=== PATIENT | male | born 1960 | race Hispanic/Latino ===

== ENCOUNTER 2016-10-13 17:05 | Observation (INO) | payer MEDICAID ==
[2016-10-13 17:08] VITALS: BP 120/73; PULSE 90; RESP 18; TEMP 98; O2SAT 100
--- NOTE | 2016-10-13 17:19 | ED PDOC ---
HPI: Psych/Substance Abuse Time Seen by Provider: 10/13/16 17:17 Chief Complaint (Nursing): Alcohol Ingestion Chief Complaint (Provider): etoh History Per: Patient, EMS Additional Complaint(s): 56 year old male presents to ED via ambulance acutely intoxicated. Patient is currently non-domiciled and admits to drinking alcohol daily. He offers no acute medical complaints at this time. Patient has been seen in [facility] ED several times in recent past. Patient is requesting inpatient detox. Patient denies any suicidal or homicidal ideation. Past Medical History Reviewed: Historical Data, Nursing Documentation, Vital Signs Vital Signs: Last Vital Signs Temp 98 F 10/13/16 17:07 Pulse 90 10/13/16 17:07 Resp 18 10/13/16 17:07 BP 120/73 10/13/16 17:07 Pulse Ox 100 10/13/16 17:07 - Medical History PMH: Asthma, COPD - Family History Family History: States: No Known Family Hx - Living Arrangements Living Arrangements: Other (non-domiciled) - Social History Alcohol: > 2 Drinks/Day Drugs: Denies - Home Medications Home Medications: Ambulatory Orders Medication Instructions Recorded Albuterol HFA [Ventolin HFA 90 0.09 mg IH Q4 PRN #1 puff 09/16/16 mcg/actuation (8 g)] predniSONE [predniSONE Tab] 40 mg PO DAILY #6 tab 09/16/16 - Allergies Allergies/Adverse Reactions: Allergies Allergy/AdvReac Type Severity Reaction Status Date / Time No Known Allergies Allergy Verified 09/22/16 20:34 Review of Systems ROS Statement: Except As Marked, All Systems Reviewed And Found Negative Psych: Positive for: Other (etoh) Physical Exam - Reviewed Nursing Documentation Reviewed: Yes Vital Signs Reviewed: Yes - Physical Exam Appears: Positive for: Well, Non-toxic, No Acute Distress Cardiovascular/Chest: Positive for: Regular Rate, Rhythm Respiratory: Positive for: Normal Breath Sounds. Negative for: Wheezing, Respiratory Distress Neurologic/Psych: Positive for: Alert, Oriented, Other (intoxicated, answers questions appropriately) - ECG O2 Sat by Pulse Oximetry: 100 Pulse Ox Interpretation: Normal Medical Decision Making Medical Decision Makin56 year old intoxicated male Plan: Admit to ED observation BAL Glucose POC: 82 ED OBSERVATION Date of observation admission: 10/13/16 Time of observation admission: 17:20 - Observation admission statement Patient is being placed in observation because:: AMS due to etoh intoxication - Goals of Observation Goals of observation are:: monitor patient while intoxicated, pending sobriety - Progress Note Progress Note: 10/13/16 18:30 Patient is sleeping, arousable, vital signs are stable, no resp compromise 10/13/16 20:00 Patient walked to bathroom with steady gait, he is awake and alert, asking for something to ear 10/13/16 20:25 Patient eloped from ED Disposition - Clinical Impression Clinical Impression: Alcohol abuse with intoxication - Patient ED Disposition Is Patient to be Admitted: No - Disposition Disposition: Eloped Disposition Time: 20:27 Condition: UNKNOWN
== END 2016-10-13 20:40 | disposition left against medical advice (07) ==
LOC: H.ER 17:05 → H.EROBSV 17:19
PROVIDERS: ADMIT Emergency Medicine; ATTEND Emergency Medicine
DX: F10.129 Alcohol abuse with intoxication, unspecified (principal); J44.9 Chronic obstructive pulmonary disease, unspecified; J45.909 Unspecified asthma, uncomplicated; Y90.8 Blood alcohol level of 240 mg/100 ml or more